=== PATIENT | female | born 1980 | race Caucasian/White ===

== ENCOUNTER → 2025-06-02 07:00 | Outpatient (REF) | payer OTHER, SELFPAY | LOC: CLAB 07:00 | PROVIDERS: ATTENDING PHYSICIAN Podiatrist Foot & Ankle Surgery | DX: S93.491S Sprain of other ligament of right ankle, sequela (principal); M65.971 Unspecified synovitis and tenosynovitis, right ankle and foot | CPT/HCPCS: 87070; 87205 ==